=== PATIENT | male | born 1965 | race Caucasian/White ===

== ENCOUNTER → 2017-11-19 | Outpatient (CLI) | payer OTHER, SELFPAY | PROVIDERS: Visit Provider Family Medicine | DX: E78.5 Hyperlipidemia, unspecified (principal); E11.9 Type 2 diabetes mellitus without complications; Z12.5 Encounter for screening for malignant neoplasm of prostate | CPT/HCPCS: 36415; 80048; 80061; 80076; 84443; 85025; 85610; 85730; G0103 ==

== ENCOUNTER → 2017-11-23 11:20 | Outpatient (CLI) | payer OTHER, SELFPAY ==
[2017-11-23 11:28] LABS: Microscopic, Urine URINE MICROSCOPIC (MICROSCOPIC)
[2017-11-23 13:01] LABS: Appearance,Urine CLEAR (Clear); Bilirubin,Urine Negative (Negative); Blood, Urine Negative (Negative); Color,Urine YELLOW (Yellow); Glucose,Urine (UA) Negative (Negative); Ketones,Urine Negative (Negative); Leukocyte Esterase,Urine Negative (Negative); Nitrate,Urine Negative (Negative); Protein,Urine Negative (Negative); Urobilinogen,Urine 0.2 EU/dl (0.2)
[2017-11-23 13:14] LABS: Bacteria,Urine Trace /lpf; Squamous Epithelial Cell,Urine Occasional #/hpf (0-5)
== END ==
PROVIDERS: PCP Family Medicine; Visit Provider Orthopaedic Surgery
DX: Z01.812 Encounter for preprocedural laboratory examination (principal)
CPT/HCPCS: 81001

== ENCOUNTER → 2018-03-23 10:22 | Outpatient (CLI) | payer OTHER, SELFPAY ==
[2018-03-23 12:12] LABS: Erythrocyte Sedimentation Rate 1 mm/hr (0-20)
[2018-03-23 12:39] LABS: Alanine Aminotransferase 99 U/L (12-78); Albumin Level 4.8 gm/dL (3.4-5.0); Anion Gap 11.6 mEq/L (5-15); Aspartate Amino Transferase 39 U/L (15-37); Bilirubin,Total 0.4 mg/dL (0.2-1.0); Blood Urea Nitrogen 12 mg/dL (7-18); Calcium 9.4 mg/dL (8.5-10.1); Carbon Dioxide 31 mmol/L (21.0-32.0); Chloride 101 mmol/L (98-107); Creatinine,Serum 1.01 mg/dL (0.70-1.30); Estimated Glomerular Filt Rate 77 ml/min (>60); GFR (African American) 93 ML/MIN (>60); Glucose 217 mg/dL (74-106); Potassium 4.6 mmoL/L (3.5-5.1); Sodium 139 mmol/L (136-145); Total Protein,Serum 7.2 gm/dL (6.4-8.2)
[2018-03-23 12:40] LABS: Alkaline Phosphatase 69 U/L (46-116); Globulin 2.4 gm/dl (1.3-3.2)
== END ==
PROVIDERS: Visit Provider Family Medicine
DX: G44.52 New daily persistent headache (NDPH) (principal); E11.9 Type 2 diabetes mellitus without complications
CPT/HCPCS: 36415; 80053; 84443; 85651

== ENCOUNTER → 2018-06-19 08:04 | Outpatient (CLI) | payer OTHER, SELFPAY ==
--- NOTE | 2018-06-19 08:07 | CT_ITS ---
CT sinus wo con CLINICAL INDICATION: ITS.REASON: CHRONIC SINUSITIS ORDERING PHYSICIAN: Kat Martinez PATIENT AGE: 53 years COMPARISON: 06/09/2004 TECHNIQUE:Axial, sagittal, and coronal images are generated and reviewed without contrast. All CT scans at the facility use one or more dose reduction, viz: automated exposure control; ma/kV adjustment per patient size (including targeted exams where dose is matched to indication; i.e. head); or iterative reconstruction technique. FINDINGS: There has been extensive bilateral sinus surgery with bilateral antrostomies and medial meatotomy which is more extensive on the left. The anterior aspect of the left sphenoid sinus is contiguous with the ethmoid sinus on the left. Mild mucosal thickening involves the posterior aspect and infra aspect of the frontal sinus with mild mucosal thickening noted within the left ethmoid sinus. There are small air-fluid levels in the maxillary sinuses on both sides. Air-fluid levels present in the left aspect of the sphenoid sinus. No mastoid effusion. IMPRESSION: 1. Extensive bilateral sinus surgery 2. Residual inflammatory changes of the paranasal sinuses described above with air-fluid levels in the maxillary sinuses and left sphenoid sinus
== END ==
PROVIDERS: Family Provider Family Medicine; PCP Family Medicine; Visit Provider Nurse Practitioner
DX: J32.9 Chronic sinusitis, unspecified (principal)
CPT/HCPCS: 70486

== ENCOUNTER → 2018-12-16 07:18 | Outpatient (CLI) | payer OTHER, SELFPAY ==
[2018-12-16 10:44] LABS: Alanine Aminotransferase 115 U/L (12-78); Albumin Level 4.8 gm/dL (3.4-5.0); Albumin/Globulin Ratio 2.1 (1.1-1.8); Alkaline Phosphatase 61 U/L (46-116); Anion Gap 14.3 mEq/L (5-15); Aspartate Amino Transferase 40 U/L (15-37); Bilirubin,Total 0.4 mg/dL (0.2-1.0); Blood Urea Nitrogen 11 mg/dL (7-18); Calcium 9.6 mg/dL (8.5-10.1); Carbon Dioxide 30 mmol/L (21.0-32.0); Chloride 100 mmol/L (98-107); Creatinine,Serum 1.05 mg/dL (0.70-1.30); Estimated Glomerular Filt Rate 73 ml/min (>60); Free T4 (Free Thyroxine) 1.01 ng/dl (0.76-1.46); GFR (African American) 89 ML/MIN (>60); Globulin 2.3 gm/dl (1.3-3.2); Glucose 192 mg/dL (74-106); Potassium 4.3 mmoL/L (3.5-5.1); Prostate Specific Ag Screen 0.5 ng/mL (0.0-4.0); Sodium 140 mmol/L (136-145); Thyroid Stimulating Hormone 2.02 uIU/ml (0.358-3.740); Total Protein,Serum 7.1 gm/dL (6.4-8.2)
[2018-12-16 11:31] LABS: Creatinine,Urine Random 113 mg/dL (20-320)
== END ==
PROVIDERS: Visit Provider Family Medicine
DX: E11.9 Type 2 diabetes mellitus without complications (principal); I10 Essential (primary) hypertension; Z12.5 Encounter for screening for malignant neoplasm of prostate
CPT/HCPCS: 36415; 80053; 82043; 82570; 84439; 84443; G0103

== ENCOUNTER → 2019-04-20 10:20 | Outpatient (CLI) | payer OTHER, SELFPAY ==
[2019-04-20 11:34] LABS: Alanine Aminotransferase 117 U/L (12-78); Albumin Level 4.4 gm/dL (3.4-5.0); Albumin/Globulin Ratio 1.8 (1.1-1.8); Alkaline Phosphatase 60 U/L (46-116); Aspartate Amino Transferase 48 U/L (15-37); Bilirubin,Total 0.5 mg/dL (0.2-1.0); Blood Urea Nitrogen 12 mg/dL (7-18); Calcium 9.3 mg/dL (8.5-10.1); Carbon Dioxide 25 mmol/L (21.0-32.0); Chloride 100 mmol/L (98-107); Creatinine,Serum 1.15 mg/dL (0.70-1.30); Estimated Glomerular Filt Rate 66 ml/min (>60); GFR (African American) 80 ML/MIN (>60); Globulin 2.4 gm/dl (1.3-3.2); Glucose 219 mg/dL (74-106); Sodium 139 mmol/L (136-145); Total Protein,Serum 6.8 gm/dL (6.4-8.2)
== END ==
PROVIDERS: Visit Provider Family Medicine
DX: R94.5 Abnormal results of liver function studies (principal); E11.9 Type 2 diabetes mellitus without complications
CPT/HCPCS: 80053

== ENCOUNTER → 2020-03-14 10:29 | Outpatient (CLI) | payer OTHER, SELFPAY ==
--- NOTE | 2020-03-14 | ECG_ITS ---
APPROVED REPORT Exam: Resting ECG HR:61 bpm ECG Measurements Heart Rate 61 AXES OK 156 P 52 QRSd 92 QRS 83 QT 404 T 11 QTc 406 <Conclusion> Normal sinus rhythm Normal ECG Electronically signed by : Tirso Rodriges, 03/16/2020 17:31:10
[2020-03-14 11:05] LABS: Basophils # 0.2 K/mm3 (0-0.2); Basophils % 2.4 % (0.1-2.0); Eosinophils # 0.1 K/mm3 (0.0-0.4); Eosinophils % 1.3 % (0.1-12.0); Hematocrit 43.9 % (42.0-52.0); Hemoglobin 15.1 g/dL (14.1-18.0); Lymphocytes # 1.2 K/mm3 (0.7-4.5); Lymphocytes % 16.2 % (10-50); Mean Corpuscular HGB Conc 34.4 g/dL (31.8-35.4); Mean Corpuscular Hemoglobin 30.2 pg (27.0-31.2); Mean Corpuscular Volume 87.6 fl (80-94); Mean Platelet Volume 7.9 fl (7.4-10.4); Monocytes # 0.5 K/mm3 (0.1-1.0); Monocytes % 6.7 % (1.7-9.3); Neutrophils # 5.4 K/mm3 (1.8-7.8); Neutrophils % 73.3 % (37.0-80.0); Platelet Count 234 K/mm3 (142-424); Red Blood Count 5.02 M/mm3 (4.60-6.20); Red Cell Distribution Width 12.5 % (11.5-17.5); White Blood Count 7.4 K/mm3 (4.8-10.8)
[2020-03-14 11:11] LABS: Chloride 100 mmol/L (98-107); Potassium 4.4 mmoL/L (3.5-5.1); Sodium 136 mmol/L (136-145)
[2020-03-14 11:13] LABS: Alanine Aminotransferase 73 U/L (12-78); Aspartate Amino Transferase 45 U/L (17-59); Blood Urea Nitrogen 11 mg/dl (9-20); Estimated Glomerular Filt Rate 69 ml/min (>60); GFR (African American) 83 ML/MIN (>60)
[2020-03-14 11:14] LABS: Albumin Level 4.3 g/dl (3.5-5.0); Albumin/Globulin Ratio 1.7 (1.1-1.8); Alkaline Phosphatase 53 U/L (38-126); Anion Gap 11.4 mEq/L (5-15); Bilirubin,Total 0.4 mg/dl (0.2-1.3); Calcium 9.5 mg/dl (8.4-10.2); Carbon Dioxide 29 mmol/L (22.0-30.0); Creatine Kinase 169 U/L (55-170); Globulin 2.5 g/dL (1.3-3.2); Glucose 193 mg/dl (74-100); Total Protein,Serum 6.8 g/dl (6.3-8.2)
[2020-03-14 11:23] LABS: CKMB Relative Index 0.8 U/L (0-4.0); Creatine Kinase MB 1.3 ng/ml (0.0-2.03)
[2020-03-14 11:29] LABS: Troponin I < 0.01 ng/ml (0.00-0.034)
[2020-03-14 11:45] LABS: Thyroid Stimulating Hormone 1.36 uIU/mL (0.465-4.68)
[2020-03-15 11:18] LABS: Vitamin B12 1272 pg/mL (232-1245)
== END ==
PROVIDERS: PCP Family Medicine; Visit Provider Physician Assistant
DX: R07.9 Chest pain, unspecified (principal); R42 Dizziness and giddiness
CPT/HCPCS: 36415; 80053; 82550; 82553; 82607; 84443; 84484; 85025; 93005

== ENCOUNTER → 2020-07-19 07:10 | Outpatient (CLI) | payer OTHER, SELFPAY ==
[2020-07-19 08:31] LABS: Chloride 100 mmol/L (98-107); Sodium 138 mmol/L (136-145)
[2020-07-19 08:32] LABS: Potassium 4.3 mmoL/L (3.5-5.1)
[2020-07-19 08:34] LABS: Alanine Aminotransferase 64 U/L (12-78); Albumin Level 4.1 g/dl (3.5-5.0); Albumin/Globulin Ratio 1.8 (1.1-1.8); Alkaline Phosphatase 52 U/L (38-126); Anion Gap 13.3 mEq/L (5-15); Aspartate Amino Transferase 36 U/L (17-59); Bilirubin,Total 0.4 mg/dl (0.2-1.3); Blood Urea Nitrogen 13 mg/dl (9-20); Carbon Dioxide 29 mmol/L (22.0-30.0); Cholesterol 113 mg/dl (140-200); Estimated Glomerular Filt Rate 77 ml/min (>60); GFR (African American) 93 ML/MIN (>60); Globulin 2.3 g/dL (1.3-3.2); Glucose 176 mg/dl (74-100); Total Protein,Serum 6.4 g/dl (6.3-8.2); Triglycerides 166 mg/dl (30-150); VLDL Cholesterol 33 mg/dL (0-40)
[2020-07-19 08:35] LABS: Calcium 9.4 mg/dl (8.4-10.2); Chol/HDL Ratio 3.6 (1-3.5); HDL Cholesterol 31 mg/dl (40-60)
[2020-07-19 08:37] LABS: Hemoglobin A1C 8.4 % (4.0-6.0)
[2020-07-19 08:46] LABS: Direct LDL Cholesterol 61.03 mg/dL (100-129)
[2020-07-19 09:20] LABS: Prostate Specific Ag Screen 0.7 ng/ml (0.0-4.0)
== END ==
PROVIDERS: Visit Provider Physician Assistant
DX: E11.9 Type 2 diabetes mellitus without complications (principal); E78.5 Hyperlipidemia, unspecified; Z79.84 Long term (current) use of oral hypoglycemic drugs; Z12.5 Encounter for screening for malignant neoplasm of prostate
CPT/HCPCS: 36415; 80053; 80061; 83036; G0103

== ENCOUNTER → 2020-09-30 15:27 | Outpatient (CLI) | payer OTHER, SELFPAY ==
[2020-09-30 16:03] LABS: Basophils # 0.1 K/mm3 (0-0.2); Basophils % 0.6 % (0.1-2.0); Eosinophils # 0.1 K/mm3 (0.0-0.4); Eosinophils % 0.8 % (0.1-12.0); Hematocrit 49.8 % (42.0-52.0); Hemoglobin 17.2 g/dL (14.1-18.0); Lymphocytes # 1.5 K/mm3 (0.7-4.5); Lymphocytes % 16.7 % (10-50); Mean Corpuscular HGB Conc 34.6 g/dL (31.8-35.4); Mean Corpuscular Volume 89.8 fl (80-94); Mean Platelet Volume 7.9 fl (7.4-10.4); Monocytes # 0.6 K/mm3 (0.1-1.0); Neutrophils # 6.8 K/mm3 (1.8-7.8); Platelet Count 277 K/mm3 (142-424); Red Blood Count 5.55 M/mm3 (4.60-6.20); Red Cell Distribution Width 13.9 % (11.5-17.5)
[2020-09-30 16:35] LABS: Chloride 100 mmol/L (98-107); Potassium 4.3 mmoL/L (3.5-5.1); Sodium 139 mmol/L (136-145)
[2020-09-30 16:38] LABS: Alanine Aminotransferase 76 U/L (12-78); Albumin/Globulin Ratio 1.9 (1.1-1.8); Alkaline Phosphatase 63 U/L (38-126); Anion Gap 18.3 mEq/L (5-15); Aspartate Amino Transferase 49 U/L (17-59); Bilirubin,Total 0.6 mg/dl (0.2-1.3); Blood Urea Nitrogen 22 mg/dl (9-20); Carbon Dioxide 25 mmol/L (22.0-30.0); Estimated Glomerular Filt Rate 48 ml/min (>60); GFR (African American) 58 ML/MIN (>60); Globulin 2.7 g/dL (1.3-3.2); Total Protein,Serum 7.7 g/dl (6.3-8.2)
[2020-09-30 16:39] LABS: Glucose 184 mg/dl (74-100)
[2020-09-30 16:53] LABS: 25-OH Vitamin D, Total 52.7 ng/mL (30-100)
[2020-09-30 17:10] LABS: Thyroid Stimulating Hormone 1.13 uIU/mL (0.465-4.68)
[2020-09-30 17:29] LABS: Vitamin B12 > 1000 pg/mL (239-931)
[2020-10-04 14:53] LABS: Testosterone, Total, LC/MS 225.3 ng/dL (264.0-916.0)
== END ==
PROVIDERS: Visit Provider Family Medicine
DX: R53.83 Other fatigue (principal); E29.1 Testicular hypofunction
CPT/HCPCS: 36415; 80053; 82306; 82607; 82746; 84403; 84443; 85025

== ENCOUNTER → 2020-10-09 07:06 | Outpatient (CLI) | payer OTHER, SELFPAY ==
[2020-10-09 08:43] LABS: Chloride 102 mmol/L (98-107)
[2020-10-09 08:44] LABS: Potassium 4.3 mmoL/L (3.5-5.1); Sodium 139 mmol/L (136-145)
[2020-10-09 08:46] LABS: Blood Urea Nitrogen 18 mg/dl (9-20); Estimated Glomerular Filt Rate 62 ml/min (>60); GFR (African American) 76 ML/MIN (>60)
[2020-10-09 08:47] LABS: Anion Gap 13.3 mEq/L (5-15); Carbon Dioxide 28 mmol/L (22.0-30.0); Glucose 157 mg/dl (74-100); Phosphorous 5.1 mg/dl (2.5-4.5)
== END ==
PROVIDERS: Visit Provider Family Medicine
DX: R79.89 Other specified abnormal findings of blood chemistry (principal); N28.9 Disorder of kidney and ureter, unspecified
CPT/HCPCS: 36415; 80048; 84100; 84403

== ENCOUNTER → 2020-11-20 14:52 | Outpatient (CLI) | payer OTHER, SELFPAY ==
[2020-11-20 16:20] LABS: Chloride 101 mmol/L (98-107); Sodium 141 mmol/L (136-145)
[2020-11-20 16:21] LABS: Potassium 5.1 mmoL/L (3.5-5.1)
[2020-11-20 16:24] LABS: Anion Gap 15.1 mEq/L (5-15); Blood Urea Nitrogen 12 mg/dl (9-20); Calcium 10.5 mg/dl (8.4-10.2); Carbon Dioxide 30 mmol/L (22.0-30.0); Estimated Glomerular Filt Rate 62 ml/min (>60); GFR (African American) 76 ML/MIN (>60); Glucose 164 mg/dl (74-100)
== END ==
PROVIDERS: Visit Provider Family Medicine
DX: E11.9 Type 2 diabetes mellitus without complications (principal)
CPT/HCPCS: 80048

== ENCOUNTER 2020-12-19 08:59 | Emergency (ER) | payer OTHER, SELFPAY ==
[2020-12-19 09:05] VITALS: BP 130/103; PULSE 76; RESP 21; TEMP 37.2; O2SAT 100; BMI 30.5
--- NOTE | 2020-12-19 09:24 | HMH.EDUTC ---
[facility] Disposition Clinical Impression: Exposure to COVID-19 virus Sinusitis Qualifiers: Sinusitis location: unspecified location Chronicity: acute Recurrence: non-recurrent Qualified Code(s): J01.90 - Acute sinusitis, unspecified Disposition: Home, Self-Care Condition on Discharge: Good Instructions: DI for Sinusitis, Preventing the Spread of Coronavirus Discharge Instructions Additional Instructions: Drink plenty of fluids. Take tylenol for pain or fever. Return if you begin to have difficulty breathing. Follow up with your regular doctor. GO TO THE ER FOR ANY WORSENING SYMPTOMS Prescriptions: Benzonatate [Tessalon Perle 100mg Cap] 100 mg PO TIDP PRN #30 cap PRN Reason: Cough Transmission Status: Received by [facility] # Azithromycin [Z-Truong 250mg Tab*] 250 mg PO UD DOSE PK #6 tab Transmission Status: Received by [facility] # Referrals: Ronal Moser MD [Primary Care Provider] - Time of Disposition: 09:31 Medical Decision Making - Medical Records Medical records reviewed: No: I reviewed the patient's medical records. - Jose Inquiry Pt receiving controlled substance: No Vital Signs: 12/19/20 09:05 12/19/20 09:34 Temperature 98.9 F 98.9 F Temperature Source Oral Pulse Rate 76 Pulse Rate [Right Brachial] 76 Respiratory Rate 21 21 Blood Pressure 130/103 H Blood Pressure [Right Arm] 130/103 H Blood Pressure Mean [Right Arm] 112 Blood Pressure Source [Right Arm] Automatic Cuff Blood Pressure Position [Right Arm] Sitting 02 Sat by Pulse Oximetry 100 Oxygen Delivery Method Room Air [facility] HPI - General Stated complaint: covid test Time Seen by Provider: 12/19/20 09:10 Mode of Arrival: Ambulatory Source of Information: Patient Limitations: No Limitations Description of Symptoms (Recalled from Triage Doc. by RN): COVID TEST D/T EXPOSURE. C/O ALLERGY SYMPTOMS HEENT Symptoms (Recalled from RN notes): No Resp Symptoms (Recalled from RN notes): No Skin Symptoms (Recalled from RN notes): No MS Symptoms (Recalled from RN notes): No Functional Status (Recalled from RN notes): WNL - History of Present Illness Provider Complaint: He states that for the past 1 week he has had body aches and a low grade fever on and off. He denies any known exposure to covid-19. His employer wanted him to be tested for covid. He does have a history of asthma. - Related Data Home Medications Medication Instructions Recorded Confirmed alprazolam 1 mg tablet 1 mg PO QHS PRN 05/22/19 10/28/20 amlodipine 5 mg tablet 5 mg PO DAILY 05/22/19 10/28/20 aspirin 81 mg tablet,delayed 81 mg PO DAILY 05/22/19 10/28/20 release azelastine 0.15 % (205.5 mcg) 2 spray INTRANASAL BID 05/22/19 10/28/20 nasal spray beclomethasone dipropionate 80 1 puff INHALATION BID 05/22/19 10/28/20 mcg/actuation HFA breath activated aerosol butalbital 50 mg-acetaminophen 300 1 tab PO Q4H PRN 05/22/19 10/28/20 mg tablet diclofenac sodium 75 mg 75 mg PO BID 05/22/19 10/28/20 tablet,delayed release eszopiclone 3 mg tablet 3 mg PO QHS 05/22/19 10/28/20 linagliptin 2.5 mg-metformin 1,000 1 tab PO ONCE tab 05/22/19 10/28/20 mg tablet losartan 100 1 tab PO DAILY 05/22/19 10/28/20 mg-hydrochlorothiazide 25 mg tablet metformin 500 mg tablet,extended 500 mg PO QPM 05/22/19 10/28/20 release 24 hr rizatriptan 10 mg tablet 10 mg PO Q2H PRN 05/22/19 10/28/20 Atorvastatin Calcium [Atorvastatin 40 mg PO DAILY 06/07/19 10/28/20 40mg Tab] Previous Rx's Medication Instructions Recorded Azithromycin [Z-Truong 250mg Tab*] 250 mg PO UD DOSE PK #6 tab 12/19/20 Benzonatate [Tessalon Perle 100mg 100 mg PO TIDP PRN #30 cap 12/19/20 Cap] Allergies Allergy/AdvReac Type Severity Reaction Status Date / Time codeine Allergy Severe Nausea Verified 10/28/20 09:37 lidocaine Allergy Severe Nausea Verified 10/28/20 09:37 propofol Allergy Severe Nausea Verified 10/28/20 09:37 desflurane
[2020-12-19 09:34] VITALS: BP 130/103; PULSE 76; RESP 21; TEMP 37.2; O2SAT 100
--- NOTE | 2020-12-19 14:52 | PC.NURSE ---
PATIENT NOTIFIED OF POSITIVE COVID RESULTS
== END 2020-12-19 09:38 | disposition home or self-care (01) ==
PROVIDERS: Emergency Provider Nurse Practitioner Family; PCP Family Medicine
DX: U07.1 COVID-19 (principal); J01.90 Acute sinusitis, unspecified; J45.909 Unspecified asthma, uncomplicated; E11.9 Type 2 diabetes mellitus without complications; I10 Essential (primary) hypertension; E78.5 Hyperlipidemia, unspecified; Z87.442 Personal history of urinary calculi; Z88.5 Allergy status to narcotic agent; Z88.8 Allergy status to other drugs, medicaments and biological substances; Z79.899 Other long term (current) drug therapy
CPT/HCPCS: 99202; G0463; U0003

== ENCOUNTER → 2020-12-24 10:53 | Outpatient (CLI) | payer OTHER, SELFPAY ==
[2020-12-24] VITALS (8 sets, daily range): BP systolic 116–155; BP diastolic 68–80; PULSE 76–85; RESP 16–18; TEMP 36.9–37.2; O2SAT 95–96
== END ==
PROVIDERS: PCP Family Medicine; Visit Provider Family Medicine
DX: U07.1 COVID-19 (principal)
CPT/HCPCS: 96365

== ENCOUNTER → 2021-10-09 07:04 | Outpatient (CLI) | payer OTHER, SELFPAY ==
[2021-10-09 07:42] LABS: Basophils # 0.1 K/mm3 (0-0.2); Eosinophils # 0.1 K/mm3 (0.0-0.4); Eosinophils % 1.6 % (0.1-12.0); Hematocrit 49.5 % (42.0-52.0); Hemoglobin 17.1 g/dL (14.1-18.0); Lymphocytes # 1.3 K/mm3 (0.7-4.5); Lymphocytes % 21.4 % (10-50); Mean Corpuscular HGB Conc 34.6 g/dL (31.8-35.4); Mean Corpuscular Hemoglobin 31.1 pg (27.0-31.2); Mean Corpuscular Volume 89.9 fl (80-94); Mean Platelet Volume 8.6 fl (7.4-10.4); Monocytes # 0.4 K/mm3 (0.1-1.0); Monocytes % 7.4 % (1.7-9.3); Neutrophils # 4.1 K/mm3 (1.8-7.8); Neutrophils % 68.6 % (37.0-80.0); Platelet Count 234 K/mm3 (142-424); Red Blood Count 5.51 M/mm3 (4.60-6.20); Red Cell Distribution Width 12.9 % (11.5-17.5)
[2021-10-09 07:54] LABS: Alanine Aminotransferase 48 U/L (12-78); Albumin Level 4.5 g/dl (3.5-5.0); Albumin/Globulin Ratio 1.9 (1.1-1.8); Alkaline Phosphatase 58 U/L (38-126); Anion Gap 11.4 mEq/L (5-15); Aspartate Amino Transferase 37 U/L (17-59); Bilirubin,Total 0.5 mg/dl (0.2-1.3); Blood Urea Nitrogen 18 mg/dl (9-20); Calcium 9.7 mg/dl (8.4-10.2); Carbon Dioxide 32 mmol/L (22.0-30.0); Chloride 102 mmol/L (98-107); Chol/HDL Ratio 3.4 (1-3.5); Cholesterol 135 mg/dl (140-200); Estimated Glomerular Filt Rate 62 ml/min (>60); GFR (African American) 75 ML/MIN (>60); Globulin 2.4 g/dL (1.3-3.2); Glucose 179 mg/dl (74-100); HDL Cholesterol 40 mg/dl (40-60); Potassium 4.4 mmoL/L (3.5-5.1); Sodium 141 mmol/L (136-145); Total Protein,Serum 6.9 g/dl (6.3-8.2); Triglycerides 143 mg/dl (30-150); VLDL Cholesterol 29 mg/dL (0-40)
[2021-10-09 08:05] LABS: Direct LDL Cholesterol 75.86 mg/dL (100-129)
[2021-10-09 08:17] LABS: Hemoglobin A1C 7.5 % (4.0-6.0)
[2021-10-09 08:24] LABS: Prostate Specific Ag Screen 0.4 ng/ml (0.0-4.0); Thyroid Stimulating Hormone 1.72 uIU/mL (0.465-4.68)
== END ==
PROVIDERS: Visit Provider Family Medicine
DX: I10 Essential (primary) hypertension (principal); E11.9 Type 2 diabetes mellitus without complications; E78.5 Hyperlipidemia, unspecified; Z79.84 Long term (current) use of oral hypoglycemic drugs; Z12.5 Encounter for screening for malignant neoplasm of prostate
CPT/HCPCS: 36415; 80053; 80061; 83036; 84443; 85025; G0103

== ENCOUNTER → 2022-01-12 12:40 | Outpatient (CLI) | payer BC, SELFPAY ==
--- NOTE | 2022-01-12 12:54 | XR_ITS ---
FINAL REPORT TECHNIQUE: Chest PA & Lateral CLINICAL HISTORY: CHEST PAIN x 3 weeks off and on COMPARISON: August 04, 2017 FINDINGS: 2 views of the chest were performed. The heart size is normal. The mediastinum is within normal limits. There is no acute cardiopulmonary process. There are no pleural effusions. There is no pneumothorax. The bony thorax appears intact. IMPRESSION: No acute cardiopulmonary process. Reviewed, Interpreted and Dictated by Delmar Mott MD Transcribed by Nehemiah Finney Authenticated by Delmar Mott MD on 01/12/2022 03:26:20 PM [facility]
== END ==
PROVIDERS: PCP Family Medicine; Visit Provider Family Medicine
DX: R07.9 Chest pain, unspecified (principal)
CPT/HCPCS: 71046

== ENCOUNTER 2022-02-21 09:48 | Emergency (ER) | payer BC, SELFPAY ==
[2022-02-21 09:55] VITALS: BP 148/85; PULSE 87; RESP 24; TEMP 36.9; O2SAT 93; BMI 28.5
[2022-02-21 10:18] LABS: UTC Influenza A Antigen Positive (Negative); UTC Influenza B Antigen Negative (Negative)
--- NOTE | 2022-02-21 10:21 | XR_ITS ---
PROCEDURE INFORMATION: Exam: XR Chest Exam date and time: 02/21/2022 10:23 AM Age: 56 years old Clinical indication: Cough; Additional info: Cough, congestion, flu like symptoms TECHNIQUE: Imaging protocol: XR of the chest. Views: 2 views. COMPARISON: CR XR CHEST 2V 01/12/2022 12:58 PM FINDINGS: Lungs: Unremarkable. No consolidation. Pleural spaces: Unremarkable. No pleural effusion. No pneumothorax. Heart/Mediastinum: Unremarkable. No cardiomegaly. Bones/joints: Unremarkable. IMPRESSION: No acute findings.
--- NOTE | 2022-02-21 10:29 | HMH.EDUTC ---
[facility] [place] Disposition Clinical Impression: Acute bronchitis Qualifiers: Bronchitis organism: unspecified organism Qualified Code(s): J20.9 - Acute bronchitis, unspecified Disposition: Home, Self-Care Condition on Discharge: Good Instructions: DI for Acute Bronchitis Additional Instructions: Start antibiotic today. Be sure to complete entire prescription even if feeling better Tylenol and ibuprofen as needed for pain or fever Humidifier/vaporizer/hot steamy shower Follow-up with primary care tomorrow. Follow-up immediately in the ER of the [facility] for new or worsening symptoms or no noticeable improvement over the next 48-72 hours. Stop smoking Sulema Carreon will not cause drowsiness to use at bedtime to help stop cough so that she can get some sleep Start steroids today. Helps with inflammation therefore coughing and wheezing. Follow directions on package. watch glucose close while on steroids Prescriptions: Benzonatate [Benzonatate 100mg cap] 100 mg PO BID PRN #14 cap PRN Reason: Cough Transmission Status: Pending to [facility] predniSONE [Prednisone 20mg Tab] 20 mg PO BID #10 tab Transmission Status: Pending to [facility] Azithromycin [Zithromax 250mg tab] 250 mg PO DIRECTED #6 tab Transmission Status: Pending to [facility] Referrals: Ronal Moser MD [Primary Care Provider] - Time of Disposition: 11:12 Medical Decision Making - Jose Inquiry Pt receiving controlled substance: No Vital Signs: 02/21/22 09:55 Temperature 98.4 F Temperature Source Oral Pulse Rate [Right Brachial] 87 Respiratory Rate 24 Blood Pressure [Right Arm] 148/85 H Blood Pressure Mean [Right Arm] 106 Blood Pressure Source [Right Arm] Automatic Cuff Blood Pressure Position [Right Arm] Sitting 02 Sat by Pulse Oximetry 93 L Oxygen Delivery Method Room Air - Lab Data Lab Results 02/21/22 10:06: Influenza Type A Ag Positive A, Influenza Type B Ag Negative [facility] HPI - General Chief complaint: Urgent Treatment Center Stated complaint: cough, chills, body aches, diarrhea, congestion Time Seen by Provider: 02/21/22 10:29 Mode of Arrival: Ambulatory Source of Information: Patient Limitations: No Limitations Description of Symptoms (Recalled from Triage Doc. by RN): PATIENT C/O COUGH THAT IS WORSE AT NIGHT AND CHEST SORENESS FROM COUGHING SINCE TUESDAY. HE REPORTS THE COUGHING GOT WORSE LAST NIGHT HEENT Symptoms (Recalled from RN notes): No Resp Symptoms (Recalled from RN notes): Yes Skin Symptoms (Recalled from RN notes): No MS Symptoms (Recalled from RN notes): No Functional Status (Recalled from RN notes): WNL - History of Present Illness Provider Complaint: 56 yr old male presents for coughing up thick dark sputum worse at night and chest soreness from coughing since tuesday last week. - Related Data Home Medications Medication Instructions Recorded Confirmed alprazolam 1 mg tablet 1 mg PO QHS PRN 05/22/19 11/03/21 amlodipine 5 mg tablet 5 mg PO DAILY 05/22/19 11/03/21 aspirin 81 mg tablet,delayed 81 mg PO DAILY 05/22/19 11/03/21 release azelastine 205.5 mcg (0.15 %) 2 spray INTRANASAL BID 05/22/19 11/03/21 nasal spray beclomethasone dipropionate 80 1 puff INHALATION BID 05/22/19 11/03/21 mcg/actuation HFA breath activated aerosol butalbital 50 mg-acetaminophen 300 1 tab PO Q4H PRN 05/22/19 11/03/21 mg tablet diclofenac sodium 75 mg 75 mg PO BID 05/22/19 11/03/21 tablet,delayed release eszopiclone 3 mg tablet 3 mg PO QHS 05/22/19 11/03/21 losartan 100 1 tab PO DAILY 05/22/19 11/03/21 mg-hydrochlorothiazide 25 mg tablet metformin 500 mg tablet,extended 500 mg PO QPM 05/22/19 11/03/21 release 24 hr rizatriptan 10 mg tablet 10 mg PO Q2H PRN 05/22/19 11/03/21 Atorvastatin Calcium [Atorvastatin 40 mg PO DAILY 06/07/19 11/03/21 40mg Tab] empagliflozin 12.5 mg-linaglipt PO 02/02/21 11/03/21 2.5 mg-metform ER 1,000 mg tablet,24hr quetiapine 5
[2022-02-21 11:16] VITALS: BP 148/85; PULSE 87; RESP 24; TEMP 36.9; O2SAT 93
== END 2022-02-21 11:29 | disposition home or self-care (01) ==
PROVIDERS: Emergency Provider Nurse Practitioner Family; PCP Family Medicine
DX: J10.1 Influenza due to other identified influenza virus with other respiratory manifestations (principal); J20.9 Acute bronchitis, unspecified; R19.7 Diarrhea, unspecified; I10 Essential (primary) hypertension; E78.5 Hyperlipidemia, unspecified; E11.9 Type 2 diabetes mellitus without complications; M19.90 Unspecified osteoarthritis, unspecified site; N40.1 Benign prostatic hyperplasia with lower urinary tract symptoms; N52.9 Male erectile dysfunction, unspecified; Z79.82 Long term (current) use of aspirin; Z79.84 Long term (current) use of oral hypoglycemic drugs; Z79.899 Other long term (current) drug therapy; Z88.5 Allergy status to narcotic agent; Z88.6 Allergy status to analgesic agent; Z88.8 Allergy status to other drugs, medicaments and biological substances; Z87.891 Personal history of nicotine dependence
CPT/HCPCS: 71046; 87804; 96372; 99213; G0463

== ENCOUNTER → 2022-11-08 07:22 | Outpatient (CLI) | payer BC, SELFPAY ==
[2022-11-08 08:47] LABS: Basophils % 0.5 % (0.1-2.0); Eosinophils # 0.1 K/mm3 (0.0-0.4); Eosinophils % 1.4 % (0.1-12.0); Hematocrit 47.3 % (42.0-52.0); Hemoglobin 15.8 g/dL (14.1-18.0); Lymphocytes # 0.9 K/mm3 (0.7-4.5); Lymphocytes % 10.7 % (10-50); Mean Corpuscular HGB Conc 33.4 g/dL (31.8-35.4); Mean Corpuscular Volume 89.8 fl (80-94); Mean Platelet Volume 8.1 fl (7.4-10.4); Monocytes # 0.7 K/mm3 (0.1-1.0); Neutrophils # 6.2 K/mm3 (1.8-7.8); Neutrophils % 78.3 % (37.0-80.0); Platelet Count 224 K/mm3 (142-424); Red Blood Count 5.26 M/mm3 (4.60-6.20); Red Cell Distribution Width 12.5 % (11.5-17.5); White Blood Count 7.9 K/mm3 (4.8-10.8)
[2022-11-08 08:54] LABS: Chloride 102 mmol/L (98-107)
[2022-11-08 08:55] LABS: Potassium 4.2 mmoL/L (3.5-5.1); Sodium 140 mmol/L (136-145)
[2022-11-08 08:57] LABS: Alanine Aminotransferase 49 U/L (12-78); Alkaline Phosphatase 73 U/L (38-126); Anion Gap 13.2 mEq/L (5-15); Aspartate Amino Transferase 35 U/L (17-59); Bilirubin,Total 0.5 mg/dl (0.2-1.3); Blood Urea Nitrogen 25 mg/dl (9-20); Carbon Dioxide 29 mmol/L (22.0-30.0); Cholesterol 124 mg/dl (140-200); Estimated Glomerular Filt Rate 57 ml/min (>60); GFR (African American) 68 ML/MIN (>60); Triglycerides 140 mg/dl (30-150); VLDL Cholesterol 28 mg/dL (0-40)
[2022-11-08 08:58] LABS: Albumin Level 4.4 g/dl (3.5-5.0); Chol/HDL Ratio 3.8 (1-3.5); Globulin 2.2 g/dL (1.3-3.2); Glucose 142 mg/dl (74-100); HDL Cholesterol 33 mg/dl (40-60); Total Protein,Serum 6.6 g/dl (6.3-8.2)
[2022-11-08 09:17] LABS: Direct LDL Cholesterol 57.71 mg/dL (100-129)
[2022-11-08 09:29] LABS: Hemoglobin A1C 7.1 % (4.0-6.0)
[2022-11-08 09:35] LABS: Thyroid Stimulating Hormone 1.34 uIU/mL (0.465-4.68)
[2022-11-08 10:25] LABS: Prostate Specific Ag Screen 0.5 ng/ml (0.0-4.0)
== END ==
PROVIDERS: PCP Family Medicine; Visit Provider Family Medicine
DX: I10 Essential (primary) hypertension (principal); E11.9 Type 2 diabetes mellitus without complications; E78.5 Hyperlipidemia, unspecified; N63.10 Unspecified lump in the right breast, unspecified quadrant; Z12.5 Encounter for screening for malignant neoplasm of prostate; Z79.84 Long term (current) use of oral hypoglycemic drugs
CPT/HCPCS: 36415; 80053; 80061; 83036; 84443; 85025; G0103

== ENCOUNTER → 2023-08-03 07:44 | Outpatient (CLI) | payer BC, SELFPAY ==
--- NOTE | 2023-08-03 07:48 | US_ITS ---
FINAL REPORT CLINICAL HISTORY: EPIGASTRIC/ABD PAIN COMPARISON: None FINDINGS: Sonographic images of the right upper quadrant were obtained. The pancreas is partially obscured. There is fatty infiltration of the liver. The gallbladder is distended but no definite gallstones are visualized. There is no evidence of biliary ductal dilatation.The common duct measures 4mm. Limited images of the right kidney are unremarkable. IMPRESSION: Fatty infiltration of the liver. Distention of the gallbladder without evidence of stones or biliary ductal dilatation. Reviewed, Interpreted and Dictated by Ovidio Perez III, MD Transcribed by Bella Aguirre Authenticated and [facility]
== END ==
PROVIDERS: PCP Family Medicine; Visit Provider Family Medicine
DX: R10.13 Epigastric pain (principal)
CPT/HCPCS: 76705

== ENCOUNTER 2023-09-06 06:35 | Day surgery (SDC) | payer BC, SELFPAY ==
[2023-09-02 16:54] VITALS: BMI 28.5
[2023-09-06 06:54] VITALS: BP 124/65; PULSE 71; RESP 18; TEMP 36.1; O2SAT 96
[2023-09-06 07:02] LABS: POC Glucose,Bedside 214 (70-110)
--- NOTE | 2023-09-06 07:12 | EXP.ANES.CKL ---
[facility] Disclaimer: The information contained in this section may have been updated after the patient was seen, as this information can be updated by other users. Medical History Acute bronchitis Allergic rhinitis Anxiety Arthritis Asthma Carpal tunnel syndrome on right Degenerative disc disease Diabetes Hyperlipemia Osteoporosis Sinusitis Surgical History H/O colonoscopy H/O sinus surgery History of carpal tunnel release History of total knee arthroplasty Family History Father Cancer Hypertension Mother Hyperlipidemia Hypertension Diabetes Cancer Sister Diabetes Hypertension Hyperlipidemia Cancer Sister Diabetes Hypertension Hyperlipidemia Sister Diabetes Hypertension Hyperlipidemia Social History Smoking Status: Never smoker second hand exposure: Yes alcohol intake: never substance use type: denies use current occupational status: retired Travel in the last 8 weeks: Inside the [place] household members: spouse housing: house caffeine: Yes [facility] Anesthesia Checklist Patient Identification Patient Identification: Arm Band and Verbal (Name & ) Structural Data Admitted From: Home Planned Operative Procedure/s: EGD Consent for Planned Operative Procedure(s) Verified: Yes NPO Status Verified Time NPO: 00:00 Additional verifications Anesthesia Reactions: No Airway Assessment Mallampati Score:: Class I C-Spine Mobility Assessed: Yes TMJ Mobility Assessed: Yes Dentition: Good Dentition Neurological Assessment Level of Consciousness: Awake Hx Seizures: No Numbness or tingling in extremities: No Anesthesia Plan Anesthesia Risk discussed: Yes Anesthesia Plan: Verified ASA Class: III Anesthesia Type: MAC
[2023-09-06 07:21] VITALS: O2SAT 96
--- NOTE | 2023-09-06 07:33 | HMH.SCOPE ---
Procedure: Date: 09/06/23 Patient Date of :: 1965 Procedure Performed:: Esophagogastroduodenoscopy with biopsy Indications:: Epigastric pain Performing Provider:: Cosmo Johnson MD Referring Provider:: . Sedation:: Monitored anesthesia care Procedure:: After informed consent was obtained the patient was taken to the endoscopy suite. Sedation ensued after the patient was transferred to the left lateral decubitus position. Pulse, blood pressure, and oxygen saturation were monitored throughout the procedure. The endoscope was advanced beyond the duodenal bulb. Retroflexion within the gastric lumen was accomplished. The gastroscope was carefully removed and the patient was transferred to recovery in stable condition. Please see findings and specimens below for detail. Findings:: Gastroesophageal junction at 42 cm Very small sliding hiatal hernia Mild to moderate patchy gastritis Specimens:: Antral biopsy Recommendations:: Proton pump inhibition Discussion with regard to possible biliary disease will be ongoing Complications:: No immediate Estimated blood obtained (mL): 1 Colonoscopy Component Colonoscopy Component Was a colonoscopy performed during today's procedure?: No
[2023-09-06 07:36] VITALS: BP 101/70; PULSE 82; RESP 18; TEMP 36.3; O2SAT 91
[2023-09-06 07:46] VITALS: BP 104/70; PULSE 74; RESP 18; O2SAT 96
[2023-09-06 07:56] VITALS: BP 112/77; PULSE 74; RESP 18; O2SAT 97
[2023-09-06 08:06] VITALS: BP 127/77; PULSE 72; RESP 20; O2SAT 99
== END 2023-09-06 08:09 | disposition home or self-care (01) ==
PROVIDERS: PCP Family Medicine; Visit Provider Surgery
PROC: 0DJ08ZZ Inspection of Upper Intestinal Tract, Via Natural or Artificial Opening Endoscopic (ICD-10-PCS; CPT 43235; principal; 2023-09-06 07:30)
DX: K31.9 Disease of stomach and duodenum, unspecified (principal); K44.9 Diaphragmatic hernia without obstruction or gangrene; K29.70 Gastritis, unspecified, without bleeding; E11.9 Type 2 diabetes mellitus without complications
CPT/HCPCS: 43239; 82962

== ENCOUNTER 2024-08-28 11:27 | Outpatient (POV) | payer BC, SELFPAY | END 2024-08-28 23:59 | disposition home or self-care (01) | LOC: SC 11:27 | PROVIDERS: Visit Provider Dermatology | DX: Z00.00 Encounter for general adult medical examination without abnormal findings (principal) ==

== ENCOUNTER 2025-08-07 07:49 | Outpatient (CLI) | payer BC, SELFPAY ==
--- OUTSIDE RECORDS SUMMARY | 2025-05-14 07:55 | XMS_ITS ---
Author Organization [facility] Address [address] [place] [id number] Care Team Providers Care Mine Patrol Name Role Phone Ronal Moser Primary Care Provider REASON FOR VISIT allergy shot Medications Medication SIG (Take, Route, Frequency, Duration) Notes Start Date End Date Status Lidoderm 5 % 1 patch remove after 12 hours Externally Once a day 06/13/2024 Active Pantoprazole Sodium 40 MG 1 tablet Orall y Once a day; Duration: 90 days Active amLODIPine Besylate 5 MG 1 tablet Orally once daily; Duration: 90 days Active Ubrelvy 100 MG 1 tablet as needed, may take second dose at least 2 hours after first dose up to 2 tablets per day as needed Orally; Duration: 30 days Active Ozempic (2 MG/DOSE) 8 MG/3ML Inject 2 mg Subcutaneous once a week; Duration: 28 days Active Losartan Potassium-HCTZ 100-25 MG TAKE 1 TABLET BY MOUTH DAILY; Duration: 90 Active ALPRAZolam 1 MG 1.5 tab(s) orally on ce a day in the am as needed; Duration: 30 days 03/18/2025 Active FreeStyle Andrés 3 Plus Sensor - Apply 1 sensor every 15 days 09/04/2024 Active Synjardy XR 12.5-1000 MG TAKE 1 TABLET B Y MOUTH DAILY WITH BREAKFAST Active Jardiance 10 MG 1 tablet Orally Once a day; Duration: 30 days 04/16/2025 Active Xhance 93 MCG/ACT 1 spray(s) in each n ostril 2 times a day Active MiraLax 17 GM/SCOOP 1 scoop mixed with 8 ounces of fluid Orally Once a day 01/20/2024 Active Diclofenac Sodium 75 MG 1 tab(s) orally 2 times a day; Duration: 90 days Active QUEtiapine Fumarate 50 MG TAKE 1 TABLET BY MOUTH DAILY AT BEDTIME; Duration: 90 Active Lipitor 40 MG 1 tab(s) orally once a day (at bedtime); Duration: 90 days Active Aspirin Adult Low Dose 81 MG 1 tab(s) orally once a day A ctive Montelukast Sodium 10 MG 1 tablet Orally Once a day; Duration: 30 day(s) Active Multivitamin - 1 tab(s) orally once a day; Duration: 30 day(s) Active ASTELIN NASAL SPRAY 2 SPRAYS DIRECTED BID Active Problems Problem Type SNOMED Code ICD Code Onset Dates Problem Status W/U Status Risk Notes Problem Allergic rhinitis ([id number]) Allergic rhinitis, unspecified seasonality, unspecified trigger (J30.9) Active confirmed Encounters Encounter Location Date Provider Diagnosis [facility] [address] [facility] [address] [facility] [address] [place] [id number] 05/14/2025 Ronal Moser Allergic rhinitis, unspecified seasonality, unspecified trigger J30.9 Assessments Encounter Date Diagnosis (ICD Code) Assessment Notes Treatment Notes Treatment Clinical Notes Section Notes 05/14/2025 Allergic rhinitis, unspecified seasonality, unspecified trigger (ICD-10 - J30.9) Plan Of Treatment Next Appt Details Provider Name:Ronal Somers ry, 11/06/2025 09:00:00 AM, [address] [facility] [address] [facility], [address], [place], [id number], Medications Administered Medication Instructions Date of Administration Dosage Notes allergy 05/14/2025 0.5 mL allergy 05/14/2025 0.5 mL allergy 05/14/2025 0.5 mL Progress Notes * Chani FRAZIEROB:1965 (60 yo M)Acc No.[id number]:05/14/2025 Patient: Neftali GIVENSDREW Nehemiah Provider: Yanira Moser M.D. :1965 A ge:60 Y S ex:Male Date:05/14/2025 Address:[address] [place], [place] [address] , [place], [id number] Subjective: * Chief Complaints: * 1 . Allergy shot. * Medical History: * Medications: T oliveriog Montelukast Sodium 10 MG Tablet 1 tablet Orally Once a day , Taking Multivitamin - Tablet 1 tab(s) orally once a day , Taking ASTELIN NASAL SPRAY 2 SPRAYS DIRECTED BID , Taking Aspirin Adult Low Dose 81 MG Tablet Delayed Release 1 tab(s) orally once a day , Taking Xhance 93 MCG/ACT Exhaler Suspension 1 spray(s) in each nostril 2 times a day , Taking MiraLax 17 GM/SCOOP Powder 1 scoop mixed with 8 ounces of fluid Orally Once a day , Taking Diclofenac Sodium 75 MG Tablet Delayed Release 1 tab(s) orally 2 times a day , Taking QUEtiapine Fumarate 50 MG Tablet TAKE 1 TABLET BY MOUTH DAILY AT BEDTIME , Taking Lipitor 40 MG Tablet 1 tab(s) orally once a day (at bedtime) , Taking Losartan Potassium-HCTZ 100-25 MG Tablet TAKE 1 TABLET BY MOUTH DAILY , Taking ALPRAZolam 1 MG Tablet 1.5 tab(s) orally once a day in the am as needed , Taking FreeStyle Andrés 3 Plus Sensor - Miscellaneous Apply 1 sensor every 15 days , Taking Synjardy XR 12.5-1000 MG Tablet Extended Release 24 Hour TAKE 1 TABLET BY MOUTH DAILY WITH BREAKFAST , Taking Jardiance 10 MG Tablet 1 tablet Orally Once a day , Taking Lidoderm 5 % Patch 1 patch remove after 12 hours Externally Once a day , Taking Pantoprazole Sodium 40 MG Tablet Delayed Release 1 tablet Orally Once a day , Taking amLODIPine Besylate 5 MG Tablet 1 tablet Orally once daily , Taking Ubrelvy 100 MG Tablet 1 tablet as needed, may take second dose at least 2 hours after first dose up to 2 tablets per day as needed Orally , Taking Ozempic (2 MG/DOSE) 8 MG/3ML Solution Pen-injector Inject 2 mg Subcutaneous once a week , Medication List reviewed and reconciled with the patient Objective: * Vitals: Assessment: * Assessment: 1. A llergic rhinitis, unspecified seasonality, unspecified trigger - J30.9 (Primary) ? Plan: * Treatment: * Therapeutic Injections: allergy : 0.5 mL (Route: Subcutaneous) given by Carla Griffith on subcutaneus (Allergic rhinitis, unspecified seasonality, unspecified trigger) allergy : 0.5 mL (Route: Subcutaneous) given by Carla Griffith on subcutaneus (Allergic rhinitis, unspecified seasonality, unspecified trigger) allergy : 0.5 mL (Route: Subcutaneous) given by Carla Griffith on subcutaneus (Allergic rhinitis, unspecified seasonality, unspecified trigger) * Procedure Codes: 9 5117 IMMUNOTHERAPY INJECTIONS, Units: 3.00 * Images: Billing Information: * Visit Code: * Procedure Codes: 16904 IMMUNOTHERAPY INJECTIONS. Units: 3.00. * Electronic signature of Moon Moser MD on 08/07/2025 at 07:52 AM EDT Sign off status: Pending * Provider: Yanira Moser M.D. Date: 0 05/14/2025 Generated for Lamonte meraz/Veronica/aDvid on: 0 08/07/2025 07:52 AM EDT
--- OUTSIDE RECORDS SUMMARY | 2025-05-20 11:30 | XMS_ITS ---
Author Organization [facility] Address [address] [place] [id number] Care Team Providers Care Rn Neurology Name Role Phone Ronal Moser Primary Care Provider REASON FOR VISIT allergy shot Medications Medication SIG (Take, Route, Frequency, Duration) Notes Start Date End Date Status Lidoderm 5 % 1 patch remove after 12 hours Externally Once a day 06/13/2024 Active Ubrelvy 100 MG 1 tablet as needed, may take second dose at least 2 hours after first dose up to 2 tablets per day as needed Orally; Duration: 30 days Active Ozempic (2 MG/DOSE) 8 MG/3ML Inject 2 mg Subcutaneous once a week; Duration: 28 days Active Pantoprazole Sodium 40 MG 1 tablet Orall y Once a day; Duration: 90 days Active amLODIPine Besylate 5 MG 1 tablet Orally once daily; Duration: 90 days Active Jardiance 10 MG 1 tablet Orally Once a day; Duration: 30 days 04/16/2025 Active ALPRAZolam 1 MG 1.5 tab(s) orally on ce a day in the am as needed; Duration: 30 days 03/18/2025 Active FreeStyle Andrés 3 Plus Sensor - Apply 1 sensor every 15 days 09/04/2024 Active Losartan Potassium-HCTZ 100-25 MG TAKE 1 TABLET BY MOUTH DAILY; Duration: 90 Active Synjardy XR 12.5-1000 MG TAKE 1 TABLET B Y MOUTH DAILY WITH BREAKFAST Active Diclofenac Sodium 75 MG 1 tab(s) orally 2 times a day; Duration: 90 days Active QUEtiapine Fumarate 50 MG TAKE 1 TABLET BY MOUTH DAILY AT BEDTIME; Duration: 90 Active Xhance 93 MCG/ACT 1 spray(s) in each n ostril 2 times a day Active MiraLax 17 GM/SCOOP 1 scoop mixed with 8 ounces of fluid Orally Once a day 01/20/2024 Active Lipitor 40 MG 1 tab(s) orally [...] NASAL SPRAY 2 SPRAYS DIRECTED BID Active Encounters Encounter Location Date Provider Diagnosis [facility] [address] [facility] 36 [facility] [address] [place], [place] [phone] 05/20/2025 Ronal Moser Allergic rhinitis, unspecified J30.9 Assessments Encounter Date Diagnosis (ICD Code) Assessment Notes Treatment Notes Treatment Clinical Notes Section Notes 05/20/2025 Allergic rhinitis, unspecified (ICD-10 - J30.9) Plan Of Treatment Next Appt Details Provider Name:Ronal Somers ry, 11/06/2025 09:00:00 AM, [address] [facility] 36 [facility], [address], [place], [place], [phone], Medications Administered Medication Instructions Date of Administration Dosage Notes allergy 05/20/2025 0.50 mL allergy 05/20/2025 0.50 mL allergy 05/20/2025 0.50 mL Progress Notes * Chani FRAZIEROB:1965 (60 yo M)Acc No.[id number]:05/20/2025 Patient: Nehemiah MCCORMACK Provider: Yanira Moser M.D. :1965 A ge:60 Y S ex:Male Date:05/20/2025 Address:[address] [place] [address], [place], [id number] Subjective: * Chief Complaints: * 1 . Allergy shot. * Medical History: * Medications: T aking Montelukast Sodium 10 MG Tablet 1 tablet [...] * Assessment: 1. A llergic rhinitis, unspecified - J30.9 Plan: * Treatment: * Therapeutic Injections: allergy : 0.50 mL (Route: Subcutaneous) given by Carla Griffith on subcutaneus (Allergic rhinitis, unspecified) allergy : 0.50 mL (Route: Subcutaneous) given by Carla Griffith on subcutaneus (Allergic rhinitis, unspecified) allergy : 0.50 mL (Route: Subcutaneous) given by Carla Griffith on subcutaneus (Allergic rhinitis, unspecified) * Procedure Codes: 9 5117 IMMUNOTHERAPY INJECTIONS * Images: Billing Information: * Visit Code: * Procedure Codes: 80248 IMMUNOTHERAPY INJECTIONS. * Electronic signature of Moon Moser MD on 08/07/2025 at 07:52 AM EDT Sign off status: Pending * Provider: Yanira Moser M.D. Date: 0 05/20/2025 Generated for Lamonte meraz/Veronica/David on: 0 08/07/2025 07:52 AM EDT
--- OUTSIDE RECORDS SUMMARY | 2025-06-10 06:50 | XMS_ITS ---
[facility] Address [address] [place] [id number] Care Team Providers Care Office Services Specialist Name Role Phone Shanti Ronal Primary Care Provider REASON FOR VISIT allergy shot Medications Medication SIG (Take, Route, Frequency, Duration) Notes Start Date End Date Status MiraLax 17 GM/SCOOP 1 scoop mixed with 8 ounces of fluid Orally Once a day 01/20/2024 Active QUEtiapine Fumarate 50 MG TAKE 1 TABLET BY MOUTH DAILY AT BEDTIME; Duration: 90 Active Losartan Potassium-HCTZ 100-25 MG TAKE 1 TABLET BY MOUTH DAILY; Duration: 90 Active Lipitor 40 MG 1 tab(s) orally once a day (at bedtime); Duration: 90 days Active ALPRAZolam 1 MG 1.5 tab(s) orally on ce a day in the am as needed; Duration: 30 days 03/18/2025 Active Multivitamin - 1 tab(s) orally once a day; Duration: 30 day(s) Active Montelukast Sodium 10 MG 1 tablet Orally Once a day; Duration: 30 day(s) Active Aspirin Adult Low Dose 81 MG 1 tab(s) orally once a day A ctive ASTELIN NASAL SPRAY 2 SPRAYS DIRECTED BID Active Xhance 93 MCG/ACT 1 spray(s) in each n ostril 2 times a day Active Ozempic (2 MG/DOSE) 8 MG/3ML Inject 2 mg Subcutaneous once a week; Duration: 28 days Active Synjardy XR 12.5-1000 MG 1 tablet with b reakfast Orally Once a day; Duration: 30 days Active Ubrelvy 100 MG 1 tablet as needed, may take second dose at least 2 hours after first dose up to 2 tablets per day as needed Orally; Duration: 30 days Active FreeStyle Andrés 3 Plus Sensor - Apply 1 sensor every 15 days; Duration: 90 days 09/04/2024 Active Diclofenac Sodium 75 MG 1 tablet Orally Twice a day; Duration: 90 days Active Pantoprazole Sodium 40 MG 1 tablet Orall y Once a day; Duration: 90 days Active Lidoderm 5 % 1 patch remove after 12 hours Externally Once a day 06/13/2024 Active amLODIPine Besylate 5 MG 1 tablet Orally once daily; Duration: 90 days Active Jardiance 10 MG 1 tablet Orally Once a day; Duration: 30 days 04/16/2025 Active Encounters Encounter Location Date Provider Diagnosis [facility] [address] [facility] 36 [facility] [address] [place], [place] [phone] 06/10/2025 Ronal Moser Allergic rhinitis, unspecified seasonality, unspecified trigger J30.9 Assessments Encounter Date Diagnosis (ICD Code) Assessment Notes Treatment Notes Treatment Clinical Notes Section Notes 06/10/2025 Allergic rhinitis, unspecified seasonality, unspecified trigger (ICD-10 - J30.9) Plan Of Treatment Next Appt Details Provider Name:Ronal Somers ry, 11/06/2025 09:00:00 AM, [address] [facility] 36 [facility], [address], [place], [place], [phone], Medications Administered Medication Instructions Date of Administration Dosage Notes allergy 06/10/2025 0.5 mL Mix 1: RU allergy 06/10/2025 0.5 mL Mix 2: RL allergy 06/10/2025 0.5 mL Mix 3: NEREYDA Progress Notes * Radha FRAZIER:1965 (60 yo M)Acc No.[id number]:06/10/2025 Progress Notes Patient: Nehemiah MCCORMACK Provider: Yanira Moser M.D. :1965 A ge:60 Y S ex:Male Date:06/10/2025 Address:[address] [place], [place] [id number] Subjective: * Chief Complaints: * 1 . Allergy shot. * Medical History: * Medications: T toribio Montelukast Sodium 10 MG Tablet 1 tablet [...] fluid Orally Once a day , Taking QUEtiapine Fumarate 50 MG Tablet TAKE 1 TABLET BY MOUTH DAILY AT BEDTIME , Taking Lipitor 40 MG Tablet 1 tab(s) orally once a day (at bedtime) , Taking Losartan Potassium-HCTZ 100-25 MG Tablet TAKE 1 TABLET BY MOUTH DAILY , Taking ALPRAZolam 1 MG Tablet 1.5 tab(s) orally once a day in the am as needed , Taking Jardiance 10 MG Tablet 1 tablet Orally Once a day , Taking Lidoderm 5 % Patch 1 patch remove after 12 hours Externally Once a day , Taking Pantoprazole Sodium 40 MG Tablet Delayed Release 1 tablet Orally Once a day , Taking amLODIPine Besylate 5 MG Tablet 1 tablet Orally once daily , Taking Ozempic (2 MG/DOSE) 8 MG/3ML Solution Pen-injector Inject 2 mg Subcutaneous once a week , Taking Synjardy XR 12.5-1000 MG Tablet Extended Release 24 Hour 1 tablet with breakfast Orally Once a day , Taking FreeStyle Andrés 3 Plus Sensor - Miscellaneous Apply 1 sensor every 15 days , Taking Ubrelvy 100 MG Tablet 1 tablet as needed, may take second dose at least 2 hours after first dose up to 2 tablets per day as needed Orally , Taking Diclofenac Sodium 75 MG Tablet Delayed Release 1 tablet Orally Twice a day , Medication List reviewed and reconciled with [...] Information: * Visit Code: * Procedure Codes: 06317 IMMUNOTHERAPY INJECTIONS. Units: 3.00. * Electronic signature of Moon Moser MD on 08/07/2025 at 07:52 AM EDT Sign off status: Pending * Provider: Yanira Moser M.D. Date: 0 06/10/2025 Generated for Lamonte meraz/Veronica/David on: 0 08/07/2025 07:52 AM EDT
--- OUTSIDE RECORDS SUMMARY | 2025-07-10 10:45 | XMS_ITS ---
Author Organization [facility] Address [address] [place] [phone] Care Team Providers Care Contract Mail Carrier Name Role Phone Ronal Moser Primary Care Provider Allergies Allergen (clinical drug ingredient) Drug/Non Drug Allergy documented on EMR Reaction Allergy Type Onset Date Status hydrocodone HYDROcodone GI Upset Drug Allergy Act abbie REASON FOR VISIT allergy shot Medications Medication SIG (Take, Route, Frequency, Duration) Notes Start Date End Date Status FreeStyle Andrés 3 Plus Sensor - Apply 1 sensor every 15 days; Duration: 90 days 09/04/2024 Active Diclofenac Sodium 75 MG 1 tablet Orally Twice a day; Duration: 90 days Active Ubrelvy 100 MG 1 tablet as needed, may take second dose at least 2 hours after first dose up to 2 tablets per day as needed Orally; Duration: 30 days Active Ozempic (2 MG/DOSE) 8 MG/3ML Inject 2 mg Subcutaneous once a week; Duration: 28 days Active ALPRAZolam 1 MG 1.5 tab(s) orally on ce a day in the am as needed; Duration: 30 days 06/19/2025 Active Synjardy XR 12.5-1000 MG 1 tablet with b reakfast Orally Once a day; Duration: 30 days Active amLODIPine Besylate 5 MG 1 tablet Orally once daily; Duration: 90 days Active Jardiance 10 MG 1 tablet Orally Once a day; Duration: 30 days 04/16/2025 Active Pantoprazole Sodium 40 MG 1 tablet Orall y Once a day; Duration: 90 days Active Lidoderm 5 % 1 patch remove after 12 hours Externally Once a day 06/13/2024 Active Losartan Potassium-HCTZ 100-25 MG TAKE 1 TABLET BY MOUTH DAILY; Duration: 90 Active MiraLax 17 GM/SCOOP 1 scoop mixed with 8 ounces of fluid Orally Once a day 01/20/2024 Active Xhance 93 MCG/ACT 1 spray(s) in each n ostril 2 times a day Active Lipitor 40 MG 1 tab(s) orally once a day (at bedtime); Duration: 90 days Active QUEtiapine Fumarate 50 MG TAKE 1 TABLET BY MOUTH DAILY AT BEDTIME; Duration: 90 Active Aspirin Adult Low Dose 81 MG 1 tab(s) orally once a day A ctive ASTELIN NASAL SPRAY 2 SPRAYS DIRECTED BID Active Multivitamin - 1 tab(s) orally once a day; Duration: 30 day(s) Active Montelukast Sodium 10 MG 1 tablet Orally Once a day; Duration: 30 day(s) Active Encounters Encounter Location Date Provider Diagnosis [facility] [address] [facility] [address] [place] [phone] 07/10/2025 Ronal Moser Allergic rhinitis, unspecified allergic rhinitis type J30.9 Assessments Encounter Date Diagnosis (ICD Code) Assessment Notes Treatment Notes Treatment Clinical Notes Section Notes 07/10/2025 Allergic rhinitis, unspecified allergic rhinitis type (ICD-10 - J30.9) Plan Of Treatment Next Appt Details Provider Name:Ronal Somers ry, 11/06/2025 09:00:00 AM, [address], [address], [place], [phone], Medications Administered Medication Instructions Date of Administration Dosage Notes allergy 07/10/2025 0.5 mL mix 3: NEREYDA allergy 07/10/2025 0.5 mL mix 1: RU allergy 07/10/2025 0.5 mL mix 2: RL Progress Notes * Chani FRAZIEROB:1965 (60 yo M)Acc No.[id number]:07/10/2025 Patient: Nehemiah MCCORMACK Provider: Yanira Moser M.D. :1965 A ge:60 Y S ex:Male Date:07/10/2025 Address:[address] [place] [address], [place], [phone] Subjective: * Chief Complaints: * 1 . Allergy shot. * Medical History: T ype 2 Diabetes, Hypertension, Hyperlipidemia, Allergic Rhinitis, Insomnia, Anxiety, Lumbar Disc Disease, Lumbar facet arthropathy, Fatty Liver, U/S 2013, Osteoarthritis, Knees. * Medications: T aking Montelukast Sodium 10 [...] 1 TABLET BY MOUTH DAILY , Taking Jardiance 10 MG Tablet 1 tablet Orally Once a day , Taking Lidoderm 5 % Patch 1 patch remove after 12 hours Externally Once a day , Taking Pantoprazole Sodium 40 MG Tablet Delayed Release 1 tablet Orally Once a day , Taking amLODIPine Besylate 5 MG Tablet 1 tablet Orally once daily , Taking Synjardy XR 12.5-1000 MG Tablet [...] 1 tablet Orally Twice a day , Taking ALPRAZolam 1 MG Tablet 1.5 tab(s) orally once a day in the am as needed , Taking Ozempic (2 MG/DOSE) 8 MG/3ML Solution Pen-injector Inject 2 mg Subcutaneous once a week , Medication List reviewed and reconciled with the patient * Allergies: H YDROcodone: GI Upset. Objective: * Vitals: Assessment: * Assessment: 1. A llergic rhinitis, unspecified allergic rhinitis type - J30.9 (Primary) Plan: * Treatment: * Therapeutic Injections: allergy : 0.5 mL (Route: Subcutaneous) given by Monique Earlywine , EPE on left deltoid (Pending) (Allergic rhinitis, unspecified allergic rhinitis type) allergy : 0.5 mL (Route: Subcutaneous) given by Monique Earlywine , EPE on right deltoid (Allergic rhinitis, unspecified allergic rhinitis type) allergy : 0.5 mL (Route: Subcutaneous) given by Monique Earlywine , EPE on right deltoid (Allergic rhinitis, unspecified allergic rhinitis type) * Procedure Codes: 9 5117 IMMUNOTHERAPY INJECTIONS, Units: 2.00 * Images: Billing Information: * Visit Code: * Procedure Codes: 68941 IMMUNOTHERAPY INJECTIONS. Units: 2.00. * Electronic signature of Moon Moser MD on 08/07/2025 at 07:52 AM EDT Sign off status: Pending * Provider: Yanira Moser M.D. Date: 0 07/10/2025 Generated for Lamonte meraz/Veronica/David on: 0 08/07/2025 07:52 AM EDT
--- OUTSIDE RECORDS SUMMARY | 2025-08-05 09:30 | XMS_ITS ---
[facility] [address] [place] [phone] Care Team Providers Care Insurance Claims Analyst Name Role Phone Shanti Ronal Primary Care Provider Mikaela Mable Larry Unavailable [phone] Medications Medication SIG (Take, Route, Frequency, Duration) Notes Start Date End Date Status Jardiance 10 MG 1 tablet Orally Once a day; Duration: 30 days 04/16/2025 Active Lidoderm 5 % 1 patch remove after 12 hours Externally Once a day 06/13/2024 Active Pantoprazole Sodium 40 MG 1 tablet Orall y Once a day; Duration: 90 days Active amLODIPine Besylate 5 MG 1 tablet Orally once daily; Duration: 90 days Active Synjardy XR 12.5-1000 MG 1 tablet with b reakfast Orally Once a day; Duration: 30 days Active Losartan Potassium-HCTZ 100-25 MG TAKE 1 TABLET BY MOUTH DAILY; Duration: 90 Active Aspirin Adult Low Dose 81 MG 1 tab(s) orally once a day A ctive Xhance 93 MCG/ACT 1 spray(s) in each n ostril 2 times a day Active MiraLax 17 GM/SCOOP 1 scoop mixed with 8 ounces of fluid Orally Once a day 01/20/2024 Active QUEtiapine Fumarate 50 MG TAKE 1 TABLET BY MOUTH DAILY AT BEDTIME; Duration: 90 Active Lipitor 40 MG 1 tablet at bedtime Orally daily; Duration: 90 days Active Montelukast Sodium 10 MG 1 tablet Orally Once a day; Duration: 30 day(s) Active Multivitamin - 1 tab(s) orally once a day; Duration: 30 day(s) Active ASTELIN NASAL SPRAY 2 SPRAYS DIRECTED BID Active Ozempic (2 MG/DOSE) 8 MG/3ML Inject 2 mg Subcutaneous once a week; Duration: 28 days Active FreeStyle Andrés 3 Plus Sensor - Apply 1 sensor every 15 days; Duration: 90 days 09/04/2024 Active Ubrelvy 100 MG 1 tablet as needed, may take second dose at least 2 hours after first dose up to 2 tablets per day as needed Orally; Duration: 30 days Active Diclofenac Sodium 75 MG 1 tablet Orally Twice a day; Duration: 90 days Active ALPRAZolam 1 MG 1.5 tab(s) orally on ce a day in the am as needed; Duration: 30 days 06/19/2025 Active Encounters Encounter Location Date Provider Diagnosis [facility] 1210 [facility] 36 [facility] [address] [place], [place] [phone] 08/05/2025 Mable Al Allergic rhinitis, unspecified seasonality, unspecified trigger J30.9 Assessments Encounter Date Diagnosis (ICD Code) Assessment Notes Treatment Notes Treatment Clinical Notes Section Notes 08/05/2025 Allergic rhinitis, unspecified seasonality, unspecified trigger (ICD-10 - J30.9) Plan Of Treatment Next Appt Details Provider Name:Ronal Somres ry, 11/06/2025 09:00:00 AM, [address] [facility] 36 [facility], [address], [place], [place], [phone], Medications Administered Medication Instructions Date of Administration Dosage Notes allergy 08/05/2025 0.50 mL Mix 1: RT Uppe r allergy 08/05/2025 0.50 mL Mix 2: RT Lowe r allergy 08/05/2025 0.50 mL Mix 3: LT Arm Progress Notes * Chani FRAZIEROB:1965 (60 yo M)Acc No.[id number]:08/05/2025 Patient: Nehemiah MCCORMACK Provider: Mable Al M.D. :1965 A ge:60 Y S ex:Male Date:08/05/2025 Address:[address] [place], [place] [phone] Pcp:Ronal Moser Subjective: * Chief Complaints: * * Medical History: * Medications: T toribio [...] BY MOUTH DAILY AT BEDTIME , Taking Losartan Potassium-HCTZ 100-25 MG Tablet [...] mg Subcutaneous once a week , Taking Lipitor 40 MG Tablet 1 tablet at bedtime Orally daily Objective: * Vitals: Assessment: * Assessment: 1. A llergic rhinitis, unspecified seasonality, unspecified trigger - J30.9 (Primary) ? Plan: * Treatment: * Therapeutic Injections: allergy : 0.50 mL (Route: Subcutaneous) given by Carla Griffith on subcutaneus (Allergic rhinitis, unspecified seasonality, unspecified trigger) allergy : 0.50 mL (Route: Subcutaneous) given by Carla Griffith on subcutaneus (Allergic rhinitis, unspecified seasonality, unspecified trigger) allergy : 0.50 mL (Route: Subcutaneous) given by Carla Nacho on subcutaneus (Allergic rhinitis, unspecified seasonality, unspecified trigger) * Procedure Codes: 9 5117 IMMUNOTHERAPY INJECTIONS, Units: 3.00 * Images: Billing Information: * Visit Code: * Procedure Codes: 36361 IMMUNOTHERAPY INJECTIONS. Units: 3.00. * Electronic signature of Mable Al MD on 08/07/2025 at 07:52 AM EDT Sign off status: Pending * Provider: Mable Al M.D. Date: 0 08/05/2025 Generated for Lamonte meraz/Veronica/Doraitting on: 0 08/07/2025 07:52 AM EDT
--- OUTSIDE RECORDS SUMMARY | 2025-08-07 07:52 | XMS_ITS | Patient Health Record ---
Author Organization [facility] Address [address] [facility] [address] [place] [id number] Care Team Providers Care Threader Name Role Phone Shanti Ronal Primary Care Provider Mable Al Unavailable [phone] Audrey Zamarripa Unavailable [phone] Allergies Allergen (clinical drug ingredient) Drug/Non Drug Allergy documented on EMR Reaction Allergy Type Onset Date Status hydrocodone HYDROcodone GI Upset Drug Allergy Act abbie Results Component Value Reference Range Notes Glycohemoglobin A1c (in hous e) Reviewed date:05/07/2025 10:29:11 AM Interpretation: Performing Lab: Notes/Report: glycohemoglobin 7.8% 5 - 6.5 % P-Comprehensive Metabolic Pa yvonne (CMP) Reviewed date:05/07/2025 10:50:11 AM Interpretation:gluc 217, Cr 1.52, gfr 51,alt 68 Performing Lab: Notes/Report: CLIA: [id number] Marshall Ho MD, Forging Machine Operator [address] [facility] , [address], [place] [address] Test performed by [facility] Sodium 136 135-145 mmol/L Potassium 4.6 3.5-5.3 mmol/L Chloride 101 97-108 mmol/L CO2 26 22-32 mmol/L Glucose 217 65-99 mg/dL BUN 23 8-23 mg/dL Creatinine 1.52 0.70-1.30 mg/dL Calcium 9.7 8.6-10.4 mg/dL eGFR by Creatinine 51 >59 mL/min/1.73m2 Protein 7.0 6.0-8.3 g/dL Albumin 4.7 3.5-5.3 g/dL Alkaline Phosphatase 67 40-129 IU/L ALT (SGPT) 68 <5-55 IU/L AST (SGOT) 31 <5-46 IU/L Bilirubin, Total 0.4 <0.2-1.2 mg/dL A/G Ratio 2.0 1.1-2.5 Glucose (In-House) Reviewed date:11/05/2024 03:13:52 PM Interpretation:211 Performing Lab: Notes/Report: 211 blood glucose 211 74 - 106 mg/dL Glycohemoglobin A1c (in hous e) Reviewed date:11/05/2024 03:13:52 PM Interpretation:7.1 Performing Lab: Notes/Report: 7.1 glycohemoglobin 7.1% 5 - 6.5 % P-Comprehensive Metabolic Pa yvonne (CMP) Reviewed date:11/06/2024 08:42:40 AM Interpretation:gluc 196, alt 65 Performing Lab: Notes/Report: Test performed by [facility] [address] [place], [place] [address] , [address], [place] [address] Marshall Ho MD, Forging Machine Operator CLIA: [id number] Sodium 142 135-145 mmol/L Potassium 4.5 3.5-5.3 mmol/L Chloride 105 97-108 mmol/L CO2 25 22-32 mmol/L Glucose 196 65-99 mg/dL BUN 23 8-23 mg/dL Creatinine 1.30 0.70-1.30 mg/dL Calcium 9.8 8.6-10.4 mg/dL eGFR by Creatinine 62 >59 mL/min/1.73m2 Protein 7.0 6.0-8.3 g/dL Albumin 4.9 3.5-5.3 g/dL Alkaline Phosphatase 75 40-129 IU/L ALT (SGPT) 65 <5-55 IU/L AST (SGOT) 37 <5-46 IU/L Bilirubin, Total 0.4 <0.2-1.2 mg/dL A/G Ratio 2.3 1.1-2.5 P-Lipid Panel Reviewed date:11/06/2024 08:42:40 AM Interpretation:trig 184, hdl 35 Performing Lab: Notes/Report: Test performed by [facility] [address] [place] [address] , [address], [place] [address] Marshall Ho MD, Forging Machine Operator CLIA: [id number] Cholesterol 136 <200 mg/dL Triglycerides 184 <150 mg/dL HDL Cholesterol 35 >39 mg/dL Cholesterol / HDL Ratio 3.89 0.00-4.99 Ratio Non-HDL Cholesterol 101 <130 mg/dL LDL Cholesterol (Calculation) 64 <130 mg/dL LDL Cholesterol Levels* Less than 100 mg/dL Optimal 100 to 129 mg/dL Near Optimal/ Above Optimal 130 to 159 mg/dL Borderline High 160 to 189 mg/dL High 190 mg/dL and above Very High * Categories as recommended by the 2004 ATPIII guidelines LDL/HDL Ratio 1.8 <3.3 Ratio LDL Cholesterol Patient History Test Date: 07/21/2023 LDL Results: 32 Units: mg/dL % Change: - Test Date: 11/03/2023 LDL Results: 72 Units: mg/dL % Change: +125% Test Date: 11/05/2024 LDL Results: 64 Units: mg/dL % Change: -11% P-PSA Reviewed date:11/06/2024 08:42:40 AM Interpretation:Normal Performing Lab: Notes/Report: Test performed by [facility] [address] [place] [address] , [address], [place] [address] Marshall Ho MD, Forging Machine Operator CLIA: [id number] PSA 0.57 <4.00 ng/mL Please note this is an ultrasensitive PSA assay with a lower limit of detection of 0.014 ng/mL. This test is performed by the [employer] ECLIA methodology. Values obtained with different assay methods or kits cannot be directly compared. P-TSH reflex to FT4 Reviewed date:11/06/2024 08:42:40 AM Interpretation:Normal Performing Lab: Notes/Report: Test performed by [facility] [address] [place] [address] , [address], [place] [address] Marshall Ho MD, Forging Machine Operator CLIA: [id number] TSH reflex to FT4 1.86 0.43-5.25 mU/L P-Microalbumin/Creatinine, R andom Urine Sample Reviewed date:12/19/2024 09:06:40 AM Interpretation:see 12/17/24 Performing Lab: Notes/Report: see 12/17/24 CBC Fingerstick (in house) Reviewed date:12/10/2024 03:38:41 PM Interpretation: Performing Lab: Notes/Report: wbc 7.3 3.5 - 10 lym 16.3 15 - 50 mid 5.1 2 - 15 gran 78.6 35 - 80 rbc 5.06 3.5 - 5.5 hgb 15.2 11.5 - 16.5 hct 44.1 35 - 55 mcv 87.0 75 - 100 mch 30.0 25 - 35 mchc 34.4 31 - 38 plat 186 100 - 400 CBC Fingerstick (in house) Reviewed date:12/19/2024 09:06:13 AM Interpretation: Performing Lab: Notes/Report: wbc 5.7 3.5 - 10 lym 17.4% 15 - 50 mid 4.8% 2 - 15 gran 77.8% 35 - 80 rbc 5.01 3.5 - 5.5 hgb 15.0 11.5 - 16.5 hct 43.7 35 - 55 mcv 87.3 75 - 100 mch 29.9 25 - 35 mchc 34.2 31 - 38 plat 175 100 - 400 P-Microalbumin/Creatinine, R andom Urine Sample Reviewed date:12/19/2024 04:48:45 PM Interpretation:Normal Performing Lab: Notes/Report: Test performed by [facility], [address] , [address], [place] [address] Marshall Ho MD, Forging Machine Operator CLIA: [id number] Albumin/Creatinine Ratio, Urine 15 0-30 ug/m g Microalbumin, Urine, Random 1.1 Creatinine, Urine 74.0 Medications Medication SIG (Take, Route, Frequency, Duration) Notes Start Date End Date Status Losartan Potassium-HCTZ 100-25 MG TAKE 1 TABLET BY MOUTH DAILY; Duration: 90 Active Lipitor 40 MG 1 tablet at bedtime Orally daily; Duration: 90 days Active Jardiance 10 MG 1 tablet Orally Once a day; Duration: 30 days 04/16/2025 Active Lidoderm 5 % 1 patch remove after 12 hours Externally Once a day 06/13/2024 Active Pantoprazole Sodium 40 MG 1 tablet Orall y Once a day; Duration: 90 days Active Montelukast Sodium 10 MG 1 tablet Orally Once a day; Duration: 30 day(s) Active amLODIPine Besylate 5 MG 1 tablet Orally once daily; Duration: 90 days Active Multivitamin - 1 tab(s) orally once a day; Duration: 30 day(s) Active Synjardy XR 12.5-1000 MG 1 tablet with b reakfast Orally Once a day; Duration: 30 days Active ASTELIN NASAL SPRAY 2 SPRAYS DIRECTED BID Active FreeStyle Andrés 3 Plus Sensor - Apply 1 sensor every 15 days; Duration: 90 days 09/04/2024 Active Aspirin Adult Low Dose 81 MG 1 tab(s) orally once a day A ctive Ubrelvy 100 MG 1 tablet as needed, may take second dose at least 2 hours after first dose up to 2 tablets per day as needed Orally; Duration: 30 days Active Xhance 93 MCG/ACT 1 spray(s) in each n ostril 2 times a day Active Diclofenac Sodium 75 MG 1 tablet Orally Twice a day; Duration: 90 days Active MiraLax 17 GM/SCOOP 1 scoop mixed with 8 ounces of fluid Orally Once a day 01/20/2024 Active ALPRAZolam 1 MG 1.5 tab(s) orally on ce a day in the am as needed; Duration: 30 days 06/19/2025 Active QUEtiapine Fumarate 50 MG TAKE 1 TABLET BY MOUTH DAILY AT BEDTIME; Duration: 90 Active Ozempic (2 MG/DOSE) 8 MG/3ML Inject 2 mg Subcutaneous once a week; Duration: 28 days Active Immunizations Vaccine Route Administration Date Status Comme nts COVID 19 Moderna Unknown 03/25/2021 Administered COVID 19 Moderna Unknown 04/22/2021 Administered COVID 19 Moderna Unknown 08/12/2021 Administered COVID 19 Moderna Unknown 04/27/2022 Administered Fluzone Intradermal Quad private(18-64yrs) IM Intramuscular 09/14/2021 Administered Fluzone PF Quad (6-35 months) Unknown 09/02/2016 Administered Fluzone Quad (6months&older) Unknown 09/25/2015 Administered Fluzone Quad (6months&older) IM Intramuscular 08/04/2017 Administered Fluzone Quad (6months&older) Unknown 09/07/2018 Administered Fluzone Quad (6months&older) Unknown 09/01/2020 Administered Fluzone Quad (6months&older) IM Intramuscular 10/03/2023 Administered Fluzone Quad (6months&older) Unknown 10/05/2024 Administered H1N1 flu vaccine IM Intramuscular 11/10/2009 Administered Prevnar (PCV20) IM Intramuscular 11/03/2023 Administered Shingrix IM Intramuscular 11/11/2022 Administered Shingrix IM Intramuscular 05/13/2023 Administered Tetanus Tdap-Adacel (over 7yrs) IM Intramuscular 08/10/2010 Administered Tetanus Tdap-Adacel (over 7yrs) IM Intramuscular 11/03/2023 Administered xFlu shot-36 months and older IM Intramuscular 10/19/2006 Administered xFlu shot-36 months and older IM Intramuscular 10/16/2008 Administered xFluzone (6mos and older)-trivalent IM Intramuscular 08/10/2010 Administered xFluzone Intradermal (18-64yrs)-trivalent ID Intradermal 08/16/2013 Administered Problems Problem Type SNOMED Code ICD Code Onset Dates Problem Status W/U Status Risk Notes Problem Essential hypertension (33778161) Essential hypertension (I10) Active confirmed Problem Anxiety (14613516) Anxiety (F41.9) Active confirmed Problem Mixed anxiety and depressive disorder (519926281) Depression with anxiety (F41.8) Active confirmed Problem Family history of prostate cancer (119620181) Family history of prostate cancer (Z80.42) Active confirmed Problem Primary insomnia (3114676) Primary insomnia (F51.01) Active confirmed Problem Allergic rhinitis (10919693) Allergic rhinitis, unspecified (J30.9) Active confirmed Problem Degeneration of lumbar intervertebral disc (41115408) Lumbar degenerative disc disease (M51.36) Active confirmed Problem Type II diabetes mellitus without complication (689986578) Type 2 diabetes mellitus without complication (E11.9) Active confirmed Problem Constipation (38261234) Constipation, unspecified constipation type (K59.00) Active confirmed Problem Hyperlipidemia (46428680) Hyperlipidemia, unspecified hyperlipidemia (E78.5) Active confirmed Problem Allergic rhinitis (73657255) Allergic rhinitis, unspecified allergic rhinitis type (J30.9) Active confirmed Problem New daily persistent headache (216737847481677) New daily persistent headache (G44.52) Active confirmed Problem Migraine (23139978) Migraine without status migrainosus, not intractable, unspecified migraine type (G43.909) Active confirmed Problem Arthropathy of lumbar facet joint (946991625) Lumbar facet arthropathy (M46.96) Active confirmed Problem Erectile dysfunction (disorder) (297972052) Erectile dysfunction, unspecified erectile dysfunction type (N52.9) Active confirmed Problem Family History of Cancer of Colon (Situation) (849305971) Family history of colon cancer (Z80.0) Active confirmed Problem Osteoarthritis of knee (168208820) Primary osteoarthritis of right knee (M17.11) Active confirmed Problem Osteoarthritis of knee (962750087) Primary osteoarthritis of left knee (M17.12) Active confirmed Problem Testicular hypofunction (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) Testosterone deficiency in male (E29.1) Active confirmed Problem Allergic rhinitis (23662171) Allergic rhinitis, unspecified seasonality, unspecified trigger (J30.9) Active confirmed Problem Deformity of left foot (850933144) Deformity of left foot (M21.962) Active confirmed Vital Signs Heart Rate 90 /min 05/06/2025 Blood pressure diastolic 70 mm Hg 05/06/2025 Height 73.25 in 05/06/2025 Blood pressure systolic 120 mm Hg 05/06/2025 Weight 213.2 lbs 05/06/2025 BMI 27.93 kg/m2 05/06/2025 Encounters Encounter Location Date Provider Diagnosis [facility] [address] [place], [place] [id number] 10/10/2024 Ronal [place] Viral wart on left thumb B07.9 and Sebaceous cyst L72.3 [facility] [address] [place], [place] [id number] 11/05/2024 Ronal [place] Type 2 diabetes mellitus without complication E11.9 ; Essential hypertension I10 ; Hyperlipidemia, unspecified hyperlipidemia E78.5 ; Depression with anxiety F41.8 ; Prostate cancer screening Z12.5 and Wart of hand B07.9 [facility] [address] [place], [place] [id number] 11/15/2024 Ronal [place] Bronchitis J40 [facility] [address] [place], [place] [id number] 12/10/2024 Ronal [place] Acute URI J06.9 and Pain in right shoulder M25.511 [facility] [address] [place], [place] [id number] 12/17/2024 Ronal [place] Acute URI J06.9 and Type 2 diabetes mellitus without complication E11.9 [facility] [address] [place] [id number] 04/16/2025 Audrey Zamarripa Type 2 diabetes mellitus without complication E11.9 ; Essential hypertension I10 and BMI 28.0-28.9,adult Z68.28 [facility] [address] [place] [id number] 05/06/2025 Ronal [place] Type 2 diabetes mellitus without complication E11.9 ; Essential hypertension I10 ; Hyperlipidemia, unspecified hyperlipidemia E78.5 ; Depression with anxiety F41.8 ; Primary insomnia F51.01 ; Allergic rhinitis, unspecified J30.9 and BMI 27.0-27.9,adult Z68.27 [facility] [address] [place] [id number] 05/14/2025 Ronal [place] Allergic rhinitis, unspecified seasonality, unspecified trigger J30.9 [facility] [address] [place] [id number] 05/20/2025 Ronal [place] Allergic rhinitis, unspecified J30.9 [facility] [address] [place] [id number] 06/10/2025 Ronal [place] Allergic rhinitis, unspecified seasonality, unspecified trigger J30.9 [facility] [address] [place] [id number] 07/10/2025 Ornal [place] Allergic rhinitis, unspecified allergic rhinitis type J30.9 [facility] [address] [place] [id number] 08/05/2025 R Larry [place]ael[place] Allergic rhinitis, unspecified seasonality, unspecified trigger J30.9 [facility] [address] [place] [id number] 09/04/2024 Ronal [place] [facility] [address] [place] [id number] 09/17/2024 Ronal [place] Depression with anxi ety F41.8 [facility] [address] [place] [id number] 10/01/2024 Ronal [place] [facility] [address] [place] [id number] 10/15/2024 R Larry [place] Depression with anxi ety F41.8 [facility] [address] [place] [id number] 10/24/2024 Ronal [place] [facility] [address] [place] [id number] 11/06/2024 Ronal [place] [facility] [address] [place] [id number] 11/08/2024 Ronal [place] Type 2 diabetes mellitus without complication E11.9 [facility] [address] [place] [id number] 11/08/2024 Ronal [place] [facility] [address] [place] [id number] 11/13/2024 Ronal [place] Depression with anxi ety F41.8 [facility] [address] [place] [id number] 11/13/2024 Ronal [place] [facility] [address] [place] [id number] 12/12/2024 Ronal [place] [facility] [address] [place] [id number] 12/17/2024 Ronal [place] Depression with anxi ety F41.8 [facility] [address] [place] [id number] 12/17/2024 Ronal [place] [facility] [address] [place] [id number] 12/18/2024 Ronal [place] [facility] [address] [place] [id number] 01/18/2025 Ronal [place] [facility] [address] [place] [id number] 02/01/2025 Ronal [place] Type 2 diabetes mellitus without complication E11.9 [facility] [address] [place] [id number] 02/12/2025 Ronal [place] [facility] [address] [place] [id number] 02/20/2025 Ronal [place] [facility] [address] [place] [id number] 2025 Ronal [place] [facility] [address] [place] [id number] 03/06/2025 Ronal [place] [facility] [address] [place] [id number] 03/18/2025 Ronal [place] Depression with anxi ety F41.8 [facility] [address] [place] [id number] 04/05/2025 Ronal [place] [facility] [address] [place] [id number] 04/17/2025 Ronal [place] [facility] [address] [place] [id number] 04/22/2025 Ronal [place] [facility] [address] [place] [id number] 04/25/2025 Ronal [place] [facility] [address] [place] [id number] 05/07/2025 Ronal [place] [facility] [address] [place] [id number] 05/09/2025 Ronal [place] Type 2 diabetes mellitus without complication E11.9 [facility] [address] [place] [id number] 06/05/2025 Ronal [place] Type 2 diabetes mellitus without complication E11.9 [facility] [address] [place] [id number] 06/19/2025 Ronal [place] Depression with anxi ety F41.8 [facility] [address] [place] [id number] 06/25/2025 Ronal [place] [facility] [address] [place] [id number] 07/04/2025 Ronal [place] Type 2 diabetes mellitus without complication E11.9 [facility] [address] [place] [id number] 08/05/2025 Ronal [place] Assessments Encounter Date Diagnosis (ICD Code) Assessment Notes Treatment Notes Treatment Clinical Notes Section Notes 09/17/2024 Depression with anxiety (ICD-10 - F41.8) 10/10/2024 Sebaceous cyst (ICD-10 - L72.3) 10/10/2024 Viral wart on left thumb (ICD-10 - B07.9) 10/15/2024 Depression with anxiety (ICD-10 - F41.8) 11/05/2024 Essential hypertension (ICD-10 - I10) 11/08/2024 Type 2 diabetes mellitus without complication (ICD-10 - E11.9) 11/13/2024 Depression with anxiety (ICD-10 - F41.8) 11/15/2024 Bronchitis (ICD-10 - J40) 12/10/2024 Pain in right shoulder (ICD-10 - M25.511) Home exercise program provided to patient 12/10/2024 Acute URI (ICD-10 - J06.9) 12/17/2024 Depression with anxiety (ICD-10 - F41.8) 12/17/2024 Type 2 diabetes mellitus without complication (ICD-10 - E11.9) 12/17/2024 Acute URI (ICD-10 - J06.9) 02/01/2025 Type 2 diabetes mellitus without complication (ICD-10 - E11.9) 03/18/2025 Depression with anxiety (ICD-10 - F41.8) 04/16/2025 Essential hypertension (ICD-10 - I10) 04/16/2025 Type 2 diabetes mellitus without complication (ICD-10 - E11.9) discussed dietary plan along with portion sizes; he will see a dietitian; he will continue to monitor BS and FU with DR Moser as scheduled 11/05/2024 Type 2 diabetes mellitus without complication (ICD-10 - E11.9) Much better control, continue current treatment 05/06/2025 Essential hypertension (ICD-10 - I10) 05/09/2025 Type 2 diabetes mellitus without complication (ICD-10 - E11.9) 05/14/2025 Allergic rhinitis, unspecified seasonality, unspecified trigger (ICD-10 - J30.9) 05/20/2025 Allergic rhinitis, unspecified (ICD-10 - J30.9) 06/05/2025 Type 2 diabetes mellitus without complication (ICD-10 - E11.9) 06/10/2025 Allergic rhinitis, unspecified seasonality, unspecified trigger (ICD-10 - J30.9) 06/19/2025 Depression with anxiety (ICD-10 - F41.8) 07/04/2025 Type 2 diabetes mellitus without complication (ICD-10 - E11.9) 07/10/2025 Allergic rhinitis, unspecified allergic rhinitis type (ICD-10 - J30.9) 08/05/2025 Allergic rhinitis, unspecified seasonality, unspecified trigger (ICD-10 - J30.9) 05/06/2025 Type 2 diabetes mellitus without complication (ICD-10 - E11.9) 05/06/2025 Hyperlipidemia, unspecified hyperlipidemia (ICD-10 - E78.5) 11/05/2024 Hyperlipidemia, unspecified hyperlipidemia (ICD-10 - E78.5) 04/16/2025 BMI 28.0-28.9,adult (ICD-10 - Z68.28) 05/06/2025 Depression with anxiety (ICD-10 - F41.8) 11/05/2024 Depression with anxiety (ICD-10 - F41.8) 05/06/2025 Primary insomnia (ICD-10 - F51.01) 11/05/2024 Prostate cancer screening (ICD-10 - Z12.5) 11/05/2024 Wart of hand (ICD-10 - B07.9) 05/06/2025 Allergic rhinitis, unspecified (ICD-10 - J30.9) 05/06/2025 BMI 27.0-27.9,adult (ICD-10 - Z68.27) Plan Of Treatment Next Appt Details Provider Name:Ronal Somers ry, 11/06/2025 09:00:00 AM, [address], [place], [place], [id number], Insurance Providers Payer Name Payer Address Payer Phone Subscriber Number Group Number Insured Name Patient Relationship to Insured Coverage Start Date Coverage End Date [employer] [address] [place] [address] [id number] Nehemiah Mensah Self - patient is the insured Medications Administered Medication Instructions Date of Administration Dosage Notes allergy 04/20/2007 0.05 allergy 04/25/2007 0.1 allergy 05/04/2007 0.15 allergy 05/09/2007 0.2 allergy 05/30/2007 0.25 allergy 06/06/2007 0.30 allergy 07/10/2025 0.5 mL mix 3: NEREYDA allergy 07/10/2025 0.5 mL mix 1: RU allergy 07/10/2025 0.5 mL mix 2: RL allergy 08/05/2025 0.50 mL Mix 1: RT Uppe r allergy 08/05/2025 0.50 mL Mix 2: RT Lowe r allergy 08/05/2025 0.50 mL Mix 3: LT Arm allergy 05/20/2025 0.50 mL allergy 05/20/2025 0.50 mL allergy 05/20/2025 0.50 mL allergy 06/10/2025 0.5 mL Mix 1: RU allergy 06/10/2025 0.5 mL Mix 2: RL allergy 06/10/2025 0.5 mL Mix 3: NEREYDA allergy 05/06/2025 0.35 mL allergy 05/06/2025 0.35 mL allergy 05/06/2025 0.35 mL allergy 05/14/2025 0.5 mL allergy 05/14/2025 0.5 mL allergy 05/14/2025 0.5 mL depo medrol 80 mg 11/08/2006 Medical (General) History Medical History History ICD Code Type 2 Diabetes Hypertension Hyperlipidemia Allergic Rhinitis Insomnia Anxiety Lumbar Disc Disease Lumbar facet arthropathy Fatty Liver, U/S 2012 Osteoarthritis, Knees Surgical History Surgery Date(Month/Year) Sinus Surgery X2 Hernia Repair X2 LT Hand LT Foot LT knee replacement 08/31/2017 RT Knee Replacement 11/2017 RT Collapsed Tear Duct Repair 11/2018 Covid Antibody Infusion 11/2020 Hospitalization History Reason Date(Month/Year)
[2025-08-07 08:45] LABS: Cholesterol 133 mg/dl (140-200); HDL Cholesterol 32 mg/dl (40-60); Triglycerides 167 mg/dl (30-150)
[2025-08-07 10:09] LABS: Hemoglobin A1C 7.6 % (4.0-6.0)
== END 2025-08-07 23:59 | disposition home or self-care (01) ==
LOC: LAB 07:50
PROVIDERS: PCP Family Medicine; Visit Provider Student in an Organized Health Care Education/Training Program
DX: E11.9 Type 2 diabetes mellitus without complications (principal)
CPT/HCPCS: 36415; 80061; 83036

== ENCOUNTER 2025-11-20 09:53 | Outpatient (RCR) | payer BC, SELFPAY | END 2025-11-20 23:59 | disposition home or self-care (01) | LOC: OT 09:53 | PROVIDERS: PCP Family Medicine; Visit Provider Orthopaedic Surgery Hand Surgery | DX: M18.12 Unilateral primary osteoarthritis of first carpometacarpal joint, left hand (principal) | CPT/HCPCS: 97165 ==